=== PATIENT | male | born 1955 | race Caucasian/White ===

== ENCOUNTER 2018-04-10 10:55 | Emergency (ER) | payer OTHER ==
[2018-04-10] MEDS ORDERED: HYDROCODONE/APAP 10/325 TAB ONE (11:55)
--- NOTE | 2018-04-10 12:17 | RAD REPORT ---
EXAM DESCRIPTION: CTSpine Lumbar Wo Con04/10/2018 11:46 am CLINICAL HISTORY: Back injury with back pain and radiculopathy status post fall COMPARISON: None TECHNIQUE: Computed axial tomography lumbar spine was obtained with coronal and sagittal reconstruct ion. All CT scans are performed using dose optimization technique as appropriate and may include automated exposure control or mA/KV adjustment according to patient size. FINDINGS: Rotoscoliosis involves the thoracolumbar spine. A fracture involves the left transverse process of L2. Mild posterior subluxation of L1 on L2 and L2 on L3 is seen. Moderate spondylosis involves the upper lumbar spine consisting disc space narrowing, osteophytes, bell bchondral sclerosis and vacuum phenomena. Moderate spondylosis also involves L5-S1. A couple of ill-defined lucencies are present within the iliac bones bilaterally. The largest measure s 8 millimeters IMPRESSION: Fracture involving the left transverse processes of L2 A couple of ill-defined lucencies are present within the iliac bones bilaterally. The largest measure s 8 millimeters. These are nonspecific and can be monitored on a subsequent exam to assess stability
--- NOTE | 2018-04-10 12:26 | ER ---
Nurse's Notes [facility] Name: Jose Foster Age: 62 yrs Sex: Male : 1955 Arrival Date: 04/10/2018 Time: 10:59 Bed Treatment Private MD: Diagnosis: Fall due to bumping against object;Low back pain;Fracture of second lumbar vertebra-left transverse process Presentation: 04/10 10:59 Presenting complaint: EMS states: Fell yesterday and landed on the corner of an appliance in neighbor's yard, c/o left lower back pain, denies LOC. Transition of care: patient was not received from another setting of care. Onset of symptoms was April 10, 2018. Initial Sepsis Screen: Does the patient meet any 2 criteria? No. Patient's initial sepsis screen is negative. Does the patient have a suspected source of infection? No. Patient's initial sepsis screen is negative. Care prior to arrival: None. 10:59 Method Of Arrival: EMS: [facility] 10:59 Acuity: LINO 4 ph Historical: - Allergies: 11:05 Bactrim DS; ph - Home Meds: 11:05 Ativan 0.5 mg Oral tab 1 tab 3 times per day [Active]; carvedilol 6.25 mg Oral tab 1 ph tab 2 times per day for Hypertension [Active]; diclofenac sodium 75 mg Oral TbEC 1 tab 2 times per day [Active]; gabapentin 300 mg Oral cap 1 cap 3 times per day [Active]; Flexeril 5 mg Oral tab 1 tab 3 times per day for Fibromyalgia [Active]; Lyrica Oral 2 times per day [Active]; nystatin 100,000 unit/mL Oral susp 4 mL 4 times per day [Active]; proair HFA [Active]; Zoloft 100 mg Oral tab 1 tab once daily [Active]; - PMHx: 11:05 Anxiety; chronic back pain; COPD; Hypertension; scoliosis; ph - PSHx: 11:05 Appendectomy; ph - Immunization history:: Adult Immunizations unknown. - Social history:: Smoking status: Patient uses tobacco products, smokes one-half pack cigarettes per day. - Family history:: not pertinent. Screenin:07 Abuse screen: Denies threats or abuse. Denies injuries from another. Nutritional ph screening: No deficits noted. Tuberculosis screening: No symptoms or risk factors identified. Fall Risk Fall in past 12 months (25 points). Secondary diagnosis (15 points) impaired mobility, No IV (0 pts). Ambulatory Aid- Crutches/Cane/Walker (15 pts). Gait- Impaired (20 pts.). Mental Status- Oriented to own ability (0 pts). Total Hugo Fall Scale indicates High Risk Score (45 or more points). Fall prevention measures have been instituted. Side Rails Up X 2 Placed Close to Nursing Station As available patient and family educated on Fall Prevention Program and Strategies. Assessment: 11:05 General: Appears in no apparent distress. uncomfortable, slender, well groomed, ph Behavior is calm, cooperative, appropriate for age. Pain: Complains of pain in left low back Pain currently is 10 out of 10 on a pain scale. Neuro: Level of Consciousness is awake, alert, obeys commands, Oriented to person, place. Cardiovascular: Capillary refill < 3 seconds Patient's skin is warm and dry. Respiratory: Airway is patent Respiratory effort is even, unlabored. GI: No signs and/or symptoms were reported involving the gastrointestinal system. Derm: Skin is intact, Skin is pink, warm \T\ dry. Musculoskeletal: Circulation, motion, and sensation intact. Range of motion: intact in all extremities. 12:19 Reassessment: Patient appears in no apparent distress at this time. Patient and/or ph family updated on plan of care and expected duration. Pain level reassessed. Patient is alert, oriented x 3, equal unlabored respirations, skin warm/dry/pink. Pt resting quietly, awaiting CT results. 13:13 Reassessment: Patient appears in no apparent distress at this time. Patient and/or ph family updated on plan of care and expected duration. Pain level reassessed. Patient is alert, oriented x 3, equal unlabored respirations, skin warm/dry/pink. Vital Signs: 11:02 BP 127 / 92; Pulse 81; Resp 16; Temp 98.0; Pulse Ox 95% on R/A; Weight 58.97 kg; Height ph 5 ft. 10 in. (177.80 cm); Pain 10/10; 12:03 BP 119 / 81; Pulse 80; Resp 18; Pulse Ox 97% on R/A; mh5 11:02 Body Mass Index 18.65 (58.97 kg, 177.80 cm) ph ED Course: 10:59 Patient arrived in ED. ph 11:02 Triage completed. ph 11:04 Mick Hollingsworth MD is Attending Physician. oni 11:05 Arm band placed on. ph 11:07 Patient has correct armband on for positive identification. Bed in low position. Call ph light in reach. Side rails up X 1. Pulse ox on. Sitter at bedside. 11:33 Estefanía Saravia, RN is Primary Nurse. ph 11:45 CT completed. Patient tolerated procedure well. Patient moved to CT via stretcher. Patient moved back from CT. 11:46 CT Lumbar Spine Wo Con In Process Unspecified. EDMS 12:26 Cyril Harris MD is Referral Physician. oni 13:14 No provider procedures requiring assistance completed. Patient did not have IV access ph during this emergency room visit. Administered Medications: 12:18 Drug: Reva 10 mg-325 mg 1 tabs Route: PO; ph 13:15 Follow up: Response: No adverse reaction ph Outcome: 12:25 Discharge ordered by . oni 13:14 Discharged to home ambulatory. ph 13:14 Condition: good 13:14 Discharge instructions given to patient, Instructed on discharge instructions, the need for admit, medication usage, Demonstrated understanding of instructions, follow-up care, medications, Prescriptions given X 2. 13:37 Patient left the ED. iw Signatures: Dispatcher [employer] Mick Girard MD MD cha Williams, Irene, OTILIA BINGHAM iw Estefanía Saravia RN RN ph Warren, Shannon sw Martinez, Maria [facility]
--- NOTE | 2018-04-10 12:26 | EDPHYS ---
Physician Documentation [facility] Name: Jose Foster Age: 62 yrs Sex: Male : 1955 Arrival Date: 04/10/2018 Time: 10:59 Bed Treatment Private MD: ED Physician Mick Hollingsworth HPI: 04/10 11:31 This 62 yrs old Male presents to ER via EMS with complaints of Back Pain. oni 11:31 The patient presents with pain that is acute. The symptoms are located in the low back. oni Onset: The symptoms/episode began/occurred yesterday. The pain does not radiate. Associated signs and symptoms: The patient has no apparent associated signs or symptoms. The problem was sustained during a fall. Modifying factors: The patient symptoms are alleviated by nothing, the patient symptoms are aggravated by standing. Severity of symptoms: At their worst the symptoms were moderate, in the emergency department the symptoms are unchanged. Historical: - Allergies: 11:05 Bactrim DS; ph - Home Meds: 11:05 Ativan 0.5 mg Oral tab 1 tab 3 times per day [Active]; carvedilol 6.25 mg Oral tab 1 ph tab 2 times per day for Hypertension [Active]; diclofenac sodium 75 mg Oral TbEC 1 tab 2 times per day [Active]; gabapentin 300 mg Oral cap 1 cap 3 times per day [Active]; Flexeril 5 mg Oral tab 1 tab 3 times per day for Fibromyalgia [Active]; Lyrica Oral 2 times per day [Active]; nystatin 100,000 unit/mL Oral susp 4 mL 4 times per day [Active]; proair HFA [Active]; Zoloft 100 mg Oral tab 1 tab once daily [Active]; - PMHx: 11:05 Anxiety; chronic back pain; COPD; Hypertension; scoliosis; ph - PSHx: 11:05 Appendectomy; ph - Immunization history:: Adult Immunizations unknown. - Social history:: Smoking status: Patient uses tobacco products, smokes one-half pack cigarettes per day. - Family history:: not pertinent. ROS: 11:31 Constitutional: Negative for fever, chills, and weight loss, Eyes: Negative for injury, oni pain, redness, and discharge, ENT: Negative for injury, pain, and discharge, Neck: Negative for injury, pain, and swelling, Cardiovascular: Negative for chest pain, palpitations, and edema, Respiratory: Negative for shortness of breath, cough, wheezing, and pleuritic chest pain, Abdomen/GI: Negative for abdominal pain, nausea, vomiting, diarrhea, and constipation, : Negative for injury, bleeding, discharge, and swelling, MS/Extremity: Negative for injury and deformity, Skin: Negative for injury, rash, and discoloration, Neuro: Negative for headache, weakness, numbness, tingling, and seizure, Psych: Negative for depression, anxiety, suicide ideation, homicidal ideation, and hallucinations, Allergy/Immunology: Negative for hives, rash, and allergies, Endocrine: Negative for neck swelling, polydipsia, polyuria, polyphagia, and marked weight changes, Hematologic/Lymphatic: Negative for swollen nodes, abnormal bleeding, and unusual bruising. 11:31 Back: Positive for decreased range of motion, pain at rest, pain with movement, of the lumbar area, left low back and right low back. Exam: 11:31 Constitutional: This is a well developed, well nourished patient who is awake, alert, oni and in no acute distress. Head/Face: Normocephalic, atraumatic. Eyes: Pupils equal round and reactive to light, extra-ocular motions intact. Lids and lashes normal. Conjunctiva and sclera are non-icteric and not injected. Cornea within normal limits. Periorbital areas with no swelling, redness, or edema. ENT: Nares patent. No nasal discharge, no septal abnormalities noted. Tympanic membranes are normal and external auditory canals are clear. Oropharynx with no redness, swelling, or masses, exudates, or evidence of obstruction, uvula midline. Mucous membranes moist. Neck: Trachea midline, no thyromegaly or masses palpated, and no cervical lymphadenopathy. Supple, full range of motion without nuchal rigidity, or vertebral point tenderness. No Meningismus. Chest/axilla: Normal chest wall appearance and motion. Nontender with no deformity. No lesions are appreciated. Cardiovascular: Regular rate and rhythm with a normal S1 and S2. No gallops, murmurs, or rubs. Normal PMI, no JVD. No pulse deficits. Respiratory: Lungs have equal breath sounds bilaterally, clear to auscultation and percussion. No rales, rhonchi or wheezes noted. No increased work of breathing, no retractions or nasal flaring. Abdomen/GI: Soft, non-tender, with normal bowel sounds. No distension or tympany. No guarding or rebound. No evidence of tenderness throughout. Male : Normal genitalia with no discharge or lesions. Skin: Warm, dry with normal turgor. Normal color with no rashes, no lesions, and no evidence of cellulitis. MS/ Extremity: Pulses equal, no cyanosis. Neurovascular intact. Full, normal range of motion. Neuro: Awake and alert, GCS 15, oriented to person, place, time, and situation. Cranial nerves II-XII grossly intact. Motor strength 5/5 in all extremities. Sensory grossly intact. Cerebellar exam normal. Normal gait. Psych: Awake, alert, with orientation to person, place and time. Behavior, mood, and affect are within normal limits. 11:31 Back: pain, that is moderate, ROM is painful, scoliosis that is moderate, CVA tenderness, is absent, vertebral tenderness, is appreciated at L1, L2, L3, L4 and L5. Vital Signs: 11:02 BP 127 / 92; Pulse 81; Resp 16; Temp 98.0; Pulse Ox 95% on R/A; Weight 58.97 kg; Height ph 5 ft. 10 in. (177.80 cm); Pain 10/10; 12:03 BP 119 / 81; Pulse 80; Resp 18; Pulse Ox 97% on R/A; mh5 11:02 Body Mass Index 18.65 (58.97 kg, 177.80 cm) ph MDM: 11:05 Patient medically screened. [facility] 11:33 Data reviewed: vital signs, nurses notes, lab test result(s), radiologic studies, CT [facility] scan. 04/10 12:33 Order name: Urine Dipstick--Ancillary (enter results) 04/10 11:31 Order name: CT Lumbar Spine Wo Con; Complete Time: 12:23 oni 04/10 11:31 Order name: Urine Dipstick-Ancillary (obtain specimen); Complete Time: 12:19 [facility] Administered Medications: 12:18 Drug: [place] 10 mg-325 mg 1 tabs Route: PO; ph 13:15 Follow up: Response: No adverse reaction ph Disposition: 04/10/18 12:25 Discharged to Home. Impression: Fall due to bumping against object, Low back pain, Fracture of second lumbar vertebra - left transverse process. - Condition is Stable. - Discharge Instructions: Back Pain, Adult, Chronic Back Pain, Musculoskeletal Pain, Lumbar Fracture, Back Injury Prevention, [id number], Back Pain, Adult, [id number]. - Prescriptions for Tylenol- Codeine #3 300-30 mg Oral Tablet - take 2 tablet by ORAL route every 6 hours As needed; 30 tablet. Motrin IB 200 mg Oral Tablet - take 2 tablet by ORAL route every 6 hours As needed as needed with food; 24 tablet. - Medication Reconciliation Form, Thank You Letter, Antibiotic Education, Prescription Opioid Use form. - Follow up: Private Physician; When: 2 - 3 days; Reason: Recheck today's complaints, Continuance of care, Re-evaluation by your physician. Follow up: Cyril Harris MD; When: 2 - 3 days; Reason: Recheck today's complaints, Re-evaluation by your physician. - Problem is new. - Symptoms have improved. Signatures: Dispatcher [employer] EDMick Francis MD MD cha Williams, Irene, RN RN Estefanía Garcia RN RN ph Corrections: (The following items were deleted from the chart) 12:26 12:25 04/10/2018 12:25 Discharged to Home. Impression: Fall due to bumping against oni object; Low back pain; Fracture of second lumbar vertebra - left transverse process. Condition is Stable. Discharge Instructions: Back Pain, Adult, Chronic Back Pain, Musculoskeletal Pain, Back Injury Prevention, [id number], Back Pain, Adult, [id number]. Prescriptions for Tylenol-Codeine #3 300-30 mg Oral Tablet - take 2 tablet by ORAL route every 6 hours As needed; 30 tablet, Motrin IB 200 mg Oral Tablet - take 2 tablet by ORAL route every 6 hours As needed as needed with food; 24 tablet. and Forms are Medication Reconciliation Form, Thank You Letter, Antibiotic Education, Prescription Opioid Use. Follow up: Private Physician; When: 2 - 3 days; Reason: Recheck today's complaints, Continuance of care, Re-evaluation by your physician. Problem is new. Symptoms have improved. [facility] 13:37 12:26 04/10/2018 12:25 Discharged to Home. Impression: Fall due to bumping against iw object; Low back pain; Fracture of second lumbar vertebra - left transverse process. Condition is Stable. Discharge Instructions: Back Pain, Adult, Chronic Back Pain, Musculoskeletal Pain, Back Injury Prevention, [id number], Back Pain, Adult, [id number]. Prescriptions for Tylenol-Codeine #3 300-30 mg Oral Tablet - take 2 tablet by ORAL route every 6 hours As needed; 30 tablet, Motrin IB 200 mg Oral Tablet - take 2 tablet by ORAL route every 6 hours As needed as needed with food; 24 tablet. and Forms are Medication Reconciliation Form, Thank You Letter, Antibiotic Education, Prescription Opioid Use. Follow up: Private Physician; When: 2 - 3 days; Reason: Recheck today's complaints, Continuance of care, Re-evaluation by your physician. Follow up: Cyril Harris; When: 2 - 3 days; Reason: Recheck today's complaints, Re-evaluation by your physician. Problem is new. Symptoms have improved. oni
[2018-04-10 13:47] VITALS: TEMP 98
[2018-04-10 13:48] VITALS: BP 119/81; O2SAT 97
[2018-04-10 15:12] LABS: Urine Blood NEGATIVE (NEG); Urine Glucose NEGATIVE (NEG); Urine Protein NEGATIVE (NEG); Urine Specific Gravity 1.015 (1.005-1.030); Urine pH 6.5 (5.0-7.0)
== END 2018-04-10 13:37 | disposition home or self-care (01) ==
LOC: ER 10:55
DX: S32.029A Unspecified fracture of second lumbar vertebra, initial encounter for closed fracture (principal); W19.XXXA Unspecified fall, initial encounter; Y93.9 Activity, unspecified; Y92.9 Unspecified place or not applicable; F17.210 Nicotine dependence, cigarettes, uncomplicated; Z88.1 Allergy status to other antibiotic agents; I10 Essential (primary) hypertension; F41.9 Anxiety disorder, unspecified; J44.9 Chronic obstructive pulmonary disease, unspecified
CPT/HCPCS: 72131; 81003; 99285

== ENCOUNTER 2018-04-13 11:22 | Emergency (ER) | payer OTHER ==
[2018-04-13] MEDS ORDERED: MEPERIDINE HCL 25 MG/0.5 ML ONE (12:35)
[2018-04-13] MEDS ORDERED: KETOROLAC 30 MG/ML INJ ONE (12:35)
--- NOTE | 2018-04-13 14:08 | EDPHYS ---
Physician Documentation [facility] Name: Jose Foster Age: 62 yrs Sex: Male : 1955 Arrival Date: 04/13/2018 Time: 11:23 Bed 15 Private MD: Rabia Horn ED Physician Ron Boothe HPI: 04/13 12:27 This 62 yrs old Male presents to ER via EMS with complaints of Back Pain. rn 12:27 The patient presents with pain that is acute. The symptoms are located in the low back. rn 12:27 Onset: The symptoms/episode began/occurred 3 day(s) ago. The pain does not radiate. rn Associated signs and symptoms: Pertinent positives: none Pertinent negatives: abdominal pain, chest pain, constipation, dysuria, fever, hematuria, incontinence, nausea, numbness, tingling, urinary retention, vomiting, weakness. Modifying factors: The patient symptoms are alleviated by nothing, the patient symptoms are aggravated by any movement, bending. Severity of symptoms: At their worst the symptoms were moderate, in the emergency department the symptoms are unchanged. The patient has not experienced similar symptoms in the past. Reports fell from standing, seen here a few days ago, diagnosed with transverse process fracture, returns because of worsening pain, not resolved with tylenol #3, has contacted his pcp, is trying to get in with pain management, no neurological complaints. Ambulatory, no bowel/bladder issues. . Historical: - Allergies: : Bactrim DS; mouth irritation; hb - Home Meds: : Ativan 0.5 mg Oral tab 1 tab 3 times per day [Active]; carvedilol 6.25 mg Oral tab 1 hb tab 2 times per day for Hypertension [Active]; diclofenac sodium 75 mg Oral TbEC 1 tab 2 times per day [Active]; Flexeril 5 mg Oral tab 1 tab 3 times per day for Fibromyalgia [Active]; gabapentin 300 mg Oral cap 1 cap 3 times per day [Active]; Lyrica Oral 2 times per day [Active]; nystatin 100,000 unit/mL Oral susp 4 mL 4 times per day [Active]; proair HFA [Active]; Zoloft 100 mg Oral tab 1 tab once daily [Active]; - PMHx: 11:59 Anxiety; chronic back pain; COPD; Hypertension; scoliosis; hb - PSHx: 11:59 Appendectomy; hb - Immunization history:: Adult Immunizations up to date. - Social history:: Smoking status: Patient uses tobacco products, smokes one-half pack cigarettes per day. - Family history:: not pertinent. - Hospitalizations: : No recent hospitalization is reported. ROS: 12:27 Constitutional: Negative for fever, chills, and weight loss, Eyes: Negative for injury, rn pain, redness, and discharge, Neck: Negative for injury, pain, and swelling, Cardiovascular: Negative for chest pain, palpitations, and edema, Respiratory: Negative for shortness of breath, cough, wheezing, and pleuritic chest pain, Abdomen/GI: Negative for abdominal pain, nausea, vomiting, diarrhea, and constipation, Back: + injury and back pain MS/Extremity: Negative for injury and deformity, Neuro: Negative for headache, weakness, numbness, tingling, and seizure. Exam: 12:27 Constitutional: This is a well developed, well nourished patient who is awake, alert, rn and in no acute distress. Back: + left perispinal lumbar tenderness, no ecchymosis, no skin changes MS/ Extremity: Pulses equal, no cyanosis. Neurovascular intact. Full, normal range of motion. Equal circumference. Neuro: Awake and alert, GCS 15, oriented to person, place, time, and situation. Cranial nerves II-XII grossly intact. Motor strength 5/5 in all extremities. Sensory grossly intact. Cerebellar exam normal. Normal gait. Vital Signs: 11:57 BP 125 / 90; Pulse 77; Resp 18; Temp 97.3; Pulse Ox 98% on R/A; Weight 58.97 kg; Height hb 5 ft. 10 in. (177.80 cm); Pain 10/10; 13:37 BP 128 / 83; Pulse 64; Resp 16; Pulse Ox 100% on R/A; mh5 11:57 Body Mass Index 18.65 (58.97 kg, 177.80 cm) hb MDM: 12:00 Patient medically screened. rn 14:06 Differential diagnosis: arthritis, chronic back pain, Fatigue Fracture. Data reviewed: rn vital signs, nurses notes, old medical records, and as a result, I will discharge patient. Counseling: I had a detailed discussion with the patient and/or guardian regarding: the historical points, exam findings, and any diagnostic results supporting the discharge/admit diagnosis, radiology results, the need for outpatient follow up, to return to the emergency department if symptoms worsen or persist or if there are any questions or concerns that arise at home. Response to treatment: the patient's symptoms have markedly improved after treatment, and as a result, I will discharge patient. Special discussion: I discussed with the patient/guardian in detail that at this point there is no indication for admission to the hospital. It is understood, however, that if the symptoms persist or worsen the patient needs to return immediately for re-evaluation. ED course: Pt requesting to go home, feels better. . Administered Medications: 12:41 Drug: Demerol 25 mg Route: IM; Site: right deltoid; ph 14:00 Follow up: Response: No adverse reaction; Pain is decreased ph 12:42 Drug: TORadol 30 mg Route: IM; Site: right deltoid; ph 14:00 Follow up: Response: No adverse reaction; Pain is decreased ph Disposition: 04/13/18 14:07 Discharged to Home. Impression: Transverse process fracture of L2. . - Condition is Stable. - Discharge Instructions: Transverse Process Fracture. - Medication Reconciliation Form, Thank You Letter, Antibiotic Education, Prescription Opioid Use form. - Follow up: Private Physician; When: As needed; Reason: Recheck today's complaints, Re-evaluation by your physician. - Problem is an ongoing problem. - Symptoms have improved. Signatures: Ron Boothe MD MD rn Hall, Patricia, RN RN Thania Becker RN RN Corrections: (The following items were deleted from the chart) 14:20 14:07 04/13/2018 14:07 Discharged to Home. Impression: Transverse process fracture of ph L2. . Condition is Stable. Forms are Medication Reconciliation Form, Thank You Letter, Antibiotic Education, Prescription Opioid Use. Follow up: Private Physician; When: As needed; Reason: Recheck today's complaints, Re-evaluation by your physician. Problem is an ongoing problem. Symptoms have improved. rn
--- NOTE | 2018-04-13 14:08 | ER ---
Nurse's Notes [facility] Name: Jose Foster Age: 62 yrs Sex: Male : 1955 Arrival Date: 04/13/2018 Time: 11:23 Bed 15 Private MD: Rabia Horn Diagnosis: Transverse process fracture of L2. Presentation: 04/13 11:53 Presenting complaint: EMS states: Low back pain 09/09. Seen in ED 3 days ago for lumbar hb fx, on Tylenol #3 but pain has become unbearable. Transition of care: patient was not received from another setting of care. Onset of symptoms was April 10, 2018. Initial Sepsis Screen: Does the patient meet any 2 criteria? No. Patient's initial sepsis screen is negative. Does the patient have a suspected source of infection? No. Patient's initial sepsis screen is negative. Care prior to arrival: Medication(s) given: Tylenol #3 at 0500 today. 11:53 Acuity: LINO 3 hb 11:53 Method Of Arrival: EMS: [facility] Historical: - Allergies: 11:59 Bactrim DS; mouth irritation; hb - Home Meds: 11:59 Ativan 0.5 mg Oral tab 1 tab 3 times per day [Active]; carvedilol 6.25 mg Oral tab 1 hb tab 2 times per day for Hypertension [Active]; diclofenac sodium 75 mg Oral TbEC 1 tab 2 times per day [Active]; Flexeril 5 mg Oral tab 1 tab 3 times per day for Fibromyalgia [Active]; gabapentin 300 mg Oral cap 1 cap 3 times per day [Active]; Lyrica Oral 2 times per day [Active]; nystatin 100,000 unit/mL Oral susp 4 mL 4 times per day [Active]; proair HFA [Active]; Zoloft 100 mg Oral tab 1 tab once daily [Active]; - PMHx: 11:59 Anxiety; chronic back pain; COPD; Hypertension; scoliosis; hb - PSHx: 11:59 Appendectomy; hb - Immunization history:: Adult Immunizations up to date. - Social history:: Smoking status: Patient uses tobacco products, smokes one-half pack cigarettes per day. - Family history:: not pertinent. - Hospitalizations: : No recent hospitalization is reported. Screenin:00 Abuse screen: Denies threats or abuse. Denies injuries from another. Nutritional ph screening: No deficits noted. Tuberculosis screening: No symptoms or risk factors identified. Fall Risk None identified. Assessment: 12:00 General: Appears in no apparent distress. uncomfortable, slender, well groomed, ph Behavior is calm, cooperative, appropriate for age. Pain: Complains of pain in left low back. Neuro: Level of Consciousness is awake, alert, obeys commands, Oriented to person, place, time, situation. Cardiovascular: Capillary refill < 3 seconds Patient's skin is warm and dry. Respiratory: Airway is patent Respiratory effort is even, unlabored, Respiratory pattern is regular, symmetrical. Derm: Skin is intact, is healthy with good turgor, Skin is pink, warm \T\ dry. Musculoskeletal: Circulation, motion, and sensation intact. Range of motion: intact in all extremities, Swelling absent. 13:30 Reassessment: Patient appears in no apparent distress at this time. Patient and/or ph family updated on plan of care and expected duration. Pain level reassessed. Patient is alert, oriented x 3, equal unlabored respirations, skin warm/dry/pink. Pt reports that pain has decreased to an acceptable level, requesting to be discharged,, ERP notified. Vital Signs: 11:57 BP 125 / 90; Pulse 77; Resp 18; Temp 97.3; Pulse Ox 98% on R/A; Weight 58.97 kg; Height hb 5 ft. 10 in. (177.80 cm); Pain 10/10; 13:37 BP 128 / 83; Pulse 64; Resp 16; Pulse Ox 100% on R/A; mh5 11:57 Body Mass Index 18.65 (58.97 kg, 177.80 cm) hb ED Course: 11:23 Patient arrived in ED. mr 11:24 Rabia Horn is Private Physician. mr 11:56 Triage completed. hb 11:57 Arm band placed on right wrist. hb 12:00 Ron Boothe MD is Attending Physician. rn 12:00 Patient has correct armband on for positive identification. Placed in gown. Bed in low ph position. Call light in reach. Side rails up X 1. Pulse ox on. NIBP on. 12:16 Estefanía Saravia RN is Primary Nurse. ph 14:20 No provider procedures requiring assistance completed. Patient did not have IV access ph during this emergency room visit. Administered Medications: 12:41 Drug: Demerol 25 mg Route: IM; Site: right deltoid; ph 14:00 Follow up: Response: No adverse reaction; Pain is decreased ph 12:42 Drug: TORadol 30 mg Route: IM; Site: right deltoid; ph 14:00 Follow up: Response: No adverse reaction; Pain is decreased ph Outcome: 14:07 Discharge ordered by . rn 14:20 Patient left the ED. ph 14:20 Discharged to home ambulatory. ph 14:20 Condition: good 14:20 Discharge instructions given to patient, Instructed on discharge instructions, follow up and referral plans. Demonstrated understanding of instructions, follow-up care. Signatures: Iris Swartz Roman, MD MD rn Hall, Patricia, RN RN ph Baxter, Heather, RN RN hb Martinez, [facility] Corrections: (The following items were deleted from the chart) 11:57 11:53 Presenting complaint: EMS states: Seen in ED 3 days ago for lumbar fx, on Tylenol hb #3 but pain has become unbearable. Reports back pain 09/09. hb
[2018-04-13 14:23] VITALS: TEMP 97.3
[2018-04-13 14:24] VITALS: BP 128/83; O2SAT 100
== END 2018-04-13 14:20 | disposition home or self-care (01) ==
LOC: ER 11:22
DX: S32.029A Unspecified fracture of second lumbar vertebra, initial encounter for closed fracture (principal); W19.XXXA Unspecified fall, initial encounter; Y93.9 Activity, unspecified; Y92.9 Unspecified place or not applicable; Z88.1 Allergy status to other antibiotic agents; I10 Essential (primary) hypertension; J44.9 Chronic obstructive pulmonary disease, unspecified; F17.210 Nicotine dependence, cigarettes, uncomplicated
CPT/HCPCS: 96372; 99283; J2175

== ENCOUNTER 2018-05-06 21:09 | Emergency (ER) | payer OTHER ==
[2018-05-06] MEDS ORDERED: MORPHINE 4 MG/ML SYR ONE (22:46)
[2018-05-06] MEDS ORDERED: KETOROLAC 30 MG/ML INJ ONE (22:46)
--- NOTE | 2018-05-06 22:52 | ER ---
Nurse's Notes [facility] Name: Jose Foster Age: 62 yrs Sex: Male : 1955 Arrival Date: 05/06/2018 Time: 21:23 Bed 13 Private MD: Diagnosis: Transverse process fracture of L2 Presentation: 05/06 21:24 Presenting complaint: EMS states: "Patient c/o lower back pain, reports he fell about 3 bs1 weeks ago and hit his back on the edge of the refrigerator, went to the ER and they said he had a fracture.". Transition of care: patient was not received from another setting of care. Onset of symptoms was May 06, 2018. Risk Assessment: Do you want to hurt yourself or someone else? Patient reports no desire to harm self or others. Initial Sepsis Screen: Does the patient meet any 2 criteria? No. Patient's initial sepsis screen is negative. Does the patient have a suspected source of infection? No. Patient's initial sepsis screen is negative. Care prior to arrival: None. 21:24 Method Of Arrival: EMS: [facility] bs1 21:24 Acuity: LINO 4 bs1 Historical: - Allergies: 21:31 Bactrim DS; mouth irritation; bs1 - Home Meds: 21:31 Ativan 0.5 mg Oral tab 1 tab 3 times per day [Active]; carvedilol 6.25 mg Oral tab 1 bs1 tab 2 times per day for Hypertension [Active]; gabapentin 300 mg Oral cap 1 cap 3 times per day [Active]; Cymbalta oral oral [Active]; symbicort [Active]; Albuterol Inhl [Active]; proair HFA [Active]; diclofenac sodium 75 mg Oral TbEC 1 tab 2 times per day [Active]; Flexeril 5 mg Oral tab 1 tab 3 times per day for Fibromyalgia [Active]; - PMHx: 21:31 Anxiety; chronic back pain; COPD; Hypertension; scoliosis; Depression; Fibromyalgia; bs1 - PSHx: 21:31 Appendectomy; bs1 - Immunization history:: Adult Immunizations unknown. - Social history:: Smoking status: Patient uses tobacco products, smokes one-half pack cigarettes per day. - Ebola Screening: : Patient negative for fever greater than or equal to 101.5 degrees Fahrenheit, and additional compatible Ebola Virus Disease symptoms Patient denies exposure to infectious person. Screenin:52 Abuse screen: Denies threats or abuse. Denies injuries from another. Nutritional bs1 screening: No deficits noted. Tuberculosis screening: No symptoms or risk factors identified. Fall Risk Fall in past 12 months (25 points). No secondary diagnosis (0 pts). No IV (0 pts). Ambulatory Aid- Crutches/Cane/Walker (15 pts). Gait- Weak (10 pts.). Mental Status- Oriented to own ability (0 pts). Total Hugo Fall Scale indicates Low Risk Score (25-44 pts). Assessment: 21:25 General: Appears uncomfortable, slender, unkempt, Behavior is anxious. Pain: Complains bs1 of pain in lower back pain. Neuro: Level of Consciousness is awake, alert, obeys commands, Oriented to person, place, time, situation. Cardiovascular: Denies chest pain, shortness of breath, Heart tones S1 S2 present Capillary refill < 3 seconds Patient's skin is warm and dry. Respiratory: Airway is patent Trachea midline Respiratory effort is even, unlabored, Respiratory pattern is regular, symmetrical, Breath sounds are clear bilaterally. GI: No signs and/or symptoms were reported involving the gastrointestinal system. : No signs and/or symptoms were reported regarding the genitourinary system. EENT: No signs and/or symptoms were reported regarding the EENT system. Derm: Skin is intact, Skin is pink, warm \\T\\ dry. Musculoskeletal: Circulation, motion, and sensation intact. Capillary refill < 3 seconds, Range of motion: intact in all extremities, Reports pain in lower back. 21:25 Respiratory: Reports spitting up blood this am. bs1 22:45 Reassessment: Patient appears in no apparent distress at this time. Patient and/or bs1 family updated on plan of care and expected duration. Pain level reassessed. Patient is alert, oriented x 3, equal unlabored respirations, skin warm/dry/pink. 23:45 Reassessment: No changes from previously documented assessment. Patient and/or family bs1 updated on plan of care and expected duration. Pain level reassessed. Patient is alert, oriented x 3, equal unlabored respirations, skin warm/dry/pink. Vital Signs: 21:32 BP 127 / 89 LA Sitting (auto/reg); Pulse 62 LA; Resp 16 S; Temp 98.3(O); Pulse Ox 96% bs1 on R/A; Weight 56.7 kg (R); Height 5 ft. 9 in. (175.26 cm); Pain 10/10; 22:30 BP 131 / 89; Pulse 62; Resp 16; Pulse Ox 99% on R/A; bs1 23:30 BP 135 / 90; Pulse 60; Resp 17; Temp 98(O); Pulse Ox 100% on R/A; Pain 6/10; bs1 21:32 Body Mass Index 18.46 (56.70 kg, 175.26 cm) bs1 ED Course: 21:23 Patient arrived in ED. bs1 21:25 Triage completed. bs1 21:38 Reji Patton NP is PHCP. pm1 21:38 Mick Hollingsworth MD is Attending Physician. pm1 22:27 Rosa Wells RN is Primary Nurse. bs1 23:53 Arm band placed on right wrist. bs1 23:53 Patient has correct armband on for positive identification. Bed in low position. Call bs1 light in reach. Side rails up X 1. Pulse ox on. 23:53 No provider procedures requiring assistance completed. Patient did not have IV access bs1 during this emergency room visit. Administered Medications: 22:55 Drug: morphine 5 mg Route: IM; Site: right deltoid; bs1 05/07 00:02 Follow up: Response: No adverse reaction bs1 05/06 22:55 Drug: TORadol 30 mg Route: IM; Site: right deltoid; bs1 23:54 Follow up: Response: No adverse reaction bs1 Outcome: 22:51 Discharge ordered by . pm1 23:[facility] and given a blanket bs1 23:53 Condition: stable 23:53 Discharge instructions given to patient, Instructed on discharge instructions, follow up and referral plans. Demonstrated understanding of instructions, follow-up care. 05/07 00:02 Patient left the ED. bs1 Signatures: Reji Patton NP [employer] pm1 Rosa Wells, OTILIA RN bs1 Corrections: (The following items were deleted from the chart) 05/06 22:41 21:25 Musculoskeletal: Circulation, motion, and sensation intact. Capillary refill < 3 bs1 seconds, Range of motion: intact in all extremities, bs1
--- NOTE | 2018-05-06 22:52 | EDPHYS ---
Physician Documentation [facility] Name: Jose Foster Age: 62 yrs Sex: Male : 1955 Arrival Date: 05/06/2018 Time: 21:23 Bed 13 Private MD: ED Physician Mick Hollingsworth HPI: 05/07 00:00 This 62 yrs old Male presents to ER via EMS with complaints of Back Pain. pm1 00:00 The patient presents with pain that is chronic. The symptoms are located in the low pm1 back. Onset: The symptoms/episode began/occurred 04/10/2018. The pain does not radiate. Associated signs and symptoms: Pertinent negatives: chest pain, dysuria, fever, numbness, tingling, shortness of breath. patient with fall injury on 04/10 resulting in transverse process fracture to L2. Patient reports no improvement in pain and is currently out of pain medications at home. PCP in the process of referral to neurosurgery, pain managment. Historical: - Allergies: 05/06 21:31 Bactrim DS; mouth irritation; bs1 - Home Meds: 21:31 Ativan 0.5 mg Oral tab 1 tab 3 times per day [Active]; carvedilol 6.25 mg Oral tab 1 bs1 tab 2 times per day for Hypertension [Active]; gabapentin 300 mg Oral cap 1 cap 3 times per day [Active]; Cymbalta oral oral [Active]; symbicort [Active]; Albuterol Inhl [Active]; proair HFA [Active]; diclofenac sodium 75 mg Oral TbEC 1 tab 2 times per day [Active]; Flexeril 5 mg Oral tab 1 tab 3 times per day for Fibromyalgia [Active]; - PMHx: 21:31 Anxiety; chronic back pain; COPD; Hypertension; scoliosis; Depression; Fibromyalgia; bs1 - PSHx: 21:31 Appendectomy; bs1 - Immunization history:: Adult Immunizations unknown. - Social history:: Smoking status: Patient uses tobacco products, smokes one-half pack cigarettes per day. - Ebola Screening: : Patient negative for fever greater than or equal to 101.5 degrees Fahrenheit, and additional compatible Ebola Virus Disease symptoms Patient denies exposure to infectious person. ROS: 05/07 00:00 Constitutional: Negative for fever, chills, and weight loss, Eyes: Negative for injury, pm1 pain, redness, and discharge, ENT: Negative for injury, pain, and discharge, Neck: Negative for injury, pain, and swelling, Cardiovascular: Negative for chest pain, palpitations, and edema, Respiratory: Negative for shortness of breath, cough, wheezing, and pleuritic chest pain, Abdomen/GI: Negative for abdominal pain, nausea, vomiting, diarrhea, and constipation. : Negative for injury, bleeding, discharge, and swelling, MS/Extremity: Negative for injury and deformity, Skin: Negative for injury, rash, and discoloration, Neuro: Negative for headache, weakness, numbness, tingling, and seizure. Back: Positive for of the lumbar area, Pain. Exam: 00:00 Constitutional: This is a well developed, well nourished patient who is awake, alert, pm1 and in no acute distress. Head/Face: Normocephalic, atraumatic. Chest/axilla: Normal chest wall appearance and motion. Nontender with no deformity. No lesions are appreciated. Cardiovascular: Regular rate and rhythm with a normal S1 and S2. No gallops, murmurs, or rubs. Normal PMI, no JVD. No pulse deficits. Respiratory: Lungs have equal breath sounds bilaterally, clear to auscultation and percussion. No rales, rhonchi or wheezes noted. No increased work of breathing, no retractions or nasal flaring. Abdomen/GI: Soft, non-tender, with normal bowel sounds. No distension or tympany. No guarding or rebound. No evidence of tenderness throughout. Back: No spinal tenderness. No costovertebral tenderness. Full range of motion. Skin: Warm, dry with normal turgor. Normal color with no rashes, no lesions, and no evidence of cellulitis. MS/ Extremity: Pulses equal, no cyanosis. Neurovascular intact. Full, normal range of motion. 00:00 Neuro: Orientation: is normal, Mentation: is normal, Memory: is normal, Motor: moves all fours, Sensation: is normal, no obvious gross deficits. Vital Signs: 05/06 21:32 BP 127 / 89 LA Sitting (auto/reg); Pulse 62 LA; Resp 16 S; Temp 98.3(O); Pulse Ox 96% bs1 on R/A; Weight 56.7 kg (R); Height 5 ft. 9 in. (175.26 cm); Pain 10/10; 22:30 BP 131 / 89; Pulse 62; Resp 16; Pulse Ox 99% on R/A; bs1 23:30 BP 135 / 90; Pulse 60; Resp 17; Temp 98(O); Pulse Ox 100% on R/A; Pain 6/10; bs1 21:32 Body Mass Index 18.46 (56.70 kg, 175.26 cm) bs1 MDM: 22:10 Patient medically screened. [facility] 22:50 Data reviewed: vital signs. Data interpreted: Pulse oximetry: on room air is 96 %. pm1 Interpretation: normal. Counseling: I had a detailed discussion with the patient and/or guardian regarding: the historical points, exam findings, and any diagnostic results supporting the discharge/admit diagnosis, the need for outpatient follow up, a [employer], to return to the emergency department if symptoms worsen or persist or if there are any questions or concerns that arise at home. Administered Medications: 22:55 Drug: morphine 5 mg Route: IM; Site: right deltoid; bs1 05/07 00:02 Follow up: Response: No adverse reaction bs1 05/06 22:55 Drug: TORadol 30 mg Route: IM; Site: right deltoid; bs1 23:54 Follow up: Response: No adverse reaction bs1 Disposition: 05/07 07:17 Co-signature as Attending Physician, Mick Hollingsworth MD I agree with the assessment and [facility] plan of care. Disposition: 05/06/18 22:51 Discharged to Home. Impression: Transverse process fracture of L2. - Condition is Stable. - Medication Reconciliation Form, Thank You Letter, Antibiotic Education, Prescription Opioid Use form. - Follow up: Emergency Department; When: As needed; Reason: Worsening of condition. Follow up: Private Physician; When: 2 - 3 days; Reason: Recheck today's complaints, Continuance of care, Re-evaluation by your physician. - Problem is new. - Symptoms have improved. Signatures: Mick Hollingsworth MD MD cha Marinas, Patrick, [facility] pm1 Rosa Wells, RN RN bs1 Corrections: (The following items were deleted from the chart) 05/06 22:52 22:51 05/06/2018 22:51 Discharged to Home. Impression: Transverse fracture of L2. pm1 Condition is Stable. Forms are Medication Reconciliation Form, Thank You Letter, Antibiotic Education, Prescription Opioid Use. Follow up: Emergency Department; When: As needed; Reason: Worsening of condition. Follow up: Private Physician; When: 2 - 3 days; Reason: Recheck today's complaints, Continuance of care, Re-evaluation by your physician. Problem is new. Symptoms have improved. pm1 05/07 00:02 05/06 22:52 05/06/2018 22:51 Discharged to Home. Impression: Transverse process bs1 fracture of L2. Condition is Stable. Forms are Medication Reconciliation Form, Thank You Letter, Antibiotic Education, Prescription Opioid Use. Follow up: Emergency Department; When: As needed; Reason: Worsening of condition. Follow up: Private Physician; When: 2 - 3 days; Reason: Recheck today's complaints, Continuance of care, Re-evaluation by your physician. Problem is new. Symptoms have improved. pm1
[2018-05-07 00:35] VITALS: BP 135/90; TEMP 98; O2SAT 100
== END 2018-05-07 00:02 | disposition home or self-care (01) ==
LOC: ER 21:09
DX: S32.029A Unspecified fracture of second lumbar vertebra, initial encounter for closed fracture (principal); W19.XXXA Unspecified fall, initial encounter; Y93.9 Activity, unspecified; Y92.9 Unspecified place or not applicable; Z88.1 Allergy status to other antibiotic agents; F17.210 Nicotine dependence, cigarettes, uncomplicated; I10 Essential (primary) hypertension; J44.9 Chronic obstructive pulmonary disease, unspecified; F41.9 Anxiety disorder, unspecified; F32.9 Major depressive disorder, single episode, unspecified
CPT/HCPCS: 96372; 99283

== ENCOUNTER 2018-05-17 18:06 | Emergency (ER) | payer OTHER ==
--- NOTE | 2018-05-17 18:26 | ER ---
Nurse's Notes [facility] Name: Jose Foster Age: 63 yrs Sex: Male : 1955 Arrival Date: 05/17/2018 Time: 18:07 Bed 18 Private MD: Diagnosis: Insect bite (nonvenomous) of lower leg-Bilateral, infected Presentation: 05/17 18:08 Presenting complaint: Patient states: multiple ant bites to bilateral lower extremities ss 2-3 days ago. Transition of care: patient was not received from another setting of care. Onset of symptoms was May 15, 2018. Risk Assessment: Do you want to hurt yourself or someone else? Patient reports no desire to harm self or others. Initial Sepsis Screen: Does the patient meet any 2 criteria? No. Patient's initial sepsis screen is negative. Does the patient have a suspected source of infection? Yes: Skin breakdown/wound. Care prior to arrival: None. 18:08 Method Of Arrival: Ambulatory ss 18:08 Acuity: LINO 5 ss Triage Assessment: 18:14 General: Appears in no apparent distress. comfortable, Behavior is calm, cooperative. ss Pain: Complains of pain in bilateral lower extremities. Neuro: Level of Consciousness is awake, alert. Respiratory: Airway is patent Respiratory effort is even, unlabored, Respiratory pattern is regular, symmetrical. Derm: Skin is. Musculoskeletal: Circulation, motion, and sensation intact. Range of motion: intact in all extremities. Historical: - Allergies: 18:12 Bactrim DS; mouth irritation; ss - PMHx: 18:12 Anxiety; chronic back pain; COPD; Depression; Fibromyalgia; Hypertension; scoliosis; ss - PSHx: 18:12 Appendectomy; ss - Immunization history:: Adult Immunizations up to date. - Social history:: Smoking status: Patient uses tobacco products, smokes one-half pack cigarettes per day. - Ebola Screening: : Patient denies exposure to infectious person Patient denies travel to an Ebola-affected area in the 21 days before illness onset. Screenin:14 Abuse screen: Denies threats or abuse. Denies injuries from another. Nutritional ss screening: No deficits noted. Tuberculosis screening: Never had TB. Fall Risk None identified. Assessment: 18:14 Reassessment: asked patient to get into gown, for proper assessment. Pt refused. ss 18:28 General: Appears in no apparent distress. comfortable, unkempt, well developed, kr2 Behavior is calm. Pain: Complains of pain in mid back Pain currently is 8 out of 10 on a pain scale. Quality of pain is described as aching, Is continuous, Alleviated by medications, Aggravated by increased activity, weight bearing. Neuro: Level of Consciousness is awake, alert, obeys commands, Oriented to person, place, time, situation, Appropriate for age Intact. Cardiovascular: Capillary refill < 3 seconds in bilateral fingers Patient's skin is warm and dry. Respiratory: Airway is patent Respiratory effort is even, unlabored, Respiratory pattern is regular, symmetrical. GI: Abdomen is flat, non-distended. : No signs and/or symptoms were reported regarding the genitourinary system. EENT: Oral mucosa is moist. Derm: Skin with poor turgor has lesions on bilateral lower extremities Skin is pink, warm \T\ dry. Musculoskeletal: Circulation, motion, and sensation intact. 18:41 Reassessment: Patient refused ordered ibuprofen, becoming irritated and said I don't kr2 want that, I need something stronger, take that ibuprofen out of here. Provider notified. 18:59 Reassessment: Patient appears in no apparent distress at this time. Patient given kr2 prescriptions and discharge paperwork and refused to sign papers until he spoke with the doctor in charge to get a pain medication. Notified Dr. Velázquez and charge nurse. Vital Signs: 18:12 BP 149 / 107; Pulse 80; Resp 16; Pulse Ox 98% on R/A; Pain 8/10; ss ED Course: 18:07 Patient arrived in ED. ss 18:11 Triage completed. ss 18:12 Mick Aguirre PA is PHCP. cp 18:12 Evelio Velázquez MD is Attending Physician. cp 18:12 Arm band placed on right wrist. ss 18:14 Patient has correct armband on for positive identification. Bed in low position. Call ss light in reach. Pulse ox on. NIBP on. 18:23 Cassie Desai, OTILIA is Primary Nurse. kr2 18:44 Wound culture swab sent to lab. kr2 19:01 No provider procedures requiring assistance completed. Patient did not have IV access kr2 during this emergency room visit. Administered Medications: 18:40 Drug: Clindamycin 300 mg Route: PO; kr2 19:00 Follow up: Response: No adverse reaction kr2 18:41 Not Given (Patient Refused): Ibuprofen 800 mg PO once kr2 Outcome: 18:26 Discharge ordered by MD. gonzalez 19:01 Discharged to Unknown patient arrived via EMS and does not immediately have a ride kr2 home. He agreed to wait in the waiting room for his ride to pick him up 19:01 Condition: good 19:01 Discharge instructions given to patient, Instructed on discharge instructions, follow up and referral plans. medication usage, Demonstrated understanding of instructions, follow-up care, medications, Prescriptions given X 2. 19:02 Patient left the ED. kr2 Addendum: 05/21/2018 15:39 Addendum: Culture Results: Positive wound culture. Not a working number Certified s s letter sent to listed address for patient. Signatures: Chantelle Norman RN RN Mick Chavez, Cassie Gipson cp, RN RN kr2 Corrections: (The following items were deleted from the chart) 15:40 15:39 Addendum: Culture Results: Positive wound culture. Not a working number [facility]
--- NOTE | 2018-05-17 18:26 | EDPHYS ---
Physician Documentation [facility] Name: Jose Foster Age: 63 yrs Sex: Male : 1955 Arrival Date: 05/17/2018 Time: 18:07 Bed 18 Private MD: ED Physician Evelio Velázquez HPI: 05/17 18:16 This 63 yrs old Male presents to ER via Ambulatory with complaints of ant cp bites. 18:16 Onset: The symptoms/episode began/occurred 2-3 days ago. cp 18:16 The patient presents with a bite, by an insect. The complaints affect the left lower cp leg, right lower leg. Context: the patient can fully bear weight. Associated signs and symptoms: Pertinent negatives fever, numbness, warmth. Treatment prior to arrival includes: no previous treatment. Severity of symptoms: in the emergency department the symptoms are unchanged, despite home interventions. Historical: - Allergies: 18:12 Bactrim DS; mouth irritation; ss - PMHx: 18:12 Anxiety; chronic back pain; COPD; Depression; Fibromyalgia; Hypertension; scoliosis; ss - PSHx: 18:12 Appendectomy; ss - Immunization history:: Adult Immunizations up to date. - Social history:: Smoking status: Patient uses tobacco products, smokes one-half pack cigarettes per day. - Ebola Screening: : Patient denies exposure to infectious person Patient denies travel to an Ebola-affected area in the 21 days before illness onset. ROS: 18:18 Eyes: Negative for injury, pain, redness, and discharge. cp 18:18 Constitutional: Negative for body aches, chills, fever, poor PO intake. 18:18 Cardiovascular: Negative for chest pain, palpitations. 18:18 Respiratory: Negative for cough, shortness of breath, wheezing. 18:18 Abdomen/GI: Negative for abdominal pain, nausea, vomiting, and diarrhea. 18:18 Skin: Positive for cellulitis, of the left lower leg and right lower leg, multiple insect bites. 18:18 All other systems are negative. Exam: 18:20 Head/Face: Normocephalic, atraumatic. cp 18:20 Constitutional: The patient appears in no acute distress, alert, awake, non-toxic, well developed, well nourished. 18:20 Eyes: Periorbital structures: appear normal, Conjunctiva: normal, no exudate, no injection, Lids and lashes: appear normal, bilaterally. 18:20 ENT: External ear(s): are unremarkable, Nose: is normal, Mouth: is normal, Posterior pharynx: is normal, airway is patent. 18:20 Chest/axilla: Inspection: normal. 18:20 Cardiovascular: Rate: normal, Rhythm: regular. 18:20 Respiratory: the patient does not display signs of respiratory distress, Respirations: normal, no use of accessory muscles, no splinting, no tachypnea. 18:20 Abdomen/GI: Exam negative for discomfort, distension, guarding, Inspection: abdomen appears normal. 18:20 Skin: cellulitis, that is mild, patchy, on the right lower leg and left lower leg, mild skin ulceration with mild drainage, induration, is not appreciated. Vital Signs: 18:12 BP 149 / 107; Pulse 80; Resp 16; Pulse Ox 98% on R/A; Pain 8/10; ss MDM: 18:14 Patient medically screened. 18:25 Data reviewed: vital signs, nurses notes, and as a result, I will discharge patient. 18:25 Counseling: I had a detailed discussion with the patient and/or guardian regarding: the cp historical points, exam findings, and any diagnostic results supporting the discharge/admit diagnosis, the need for outpatient follow up, a family practitioner, to return to the emergency department if symptoms worsen or persist or if there are any questions or concerns that arise at home. 05/17 18:15 Order name: Wound Culture 05/17 18:16 Order name: Wound Culture EDMS Administered Medications: 18:40 Drug: Clindamycin 300 mg Route: PO; kr2 19:00 Follow up: Response: No adverse reaction kr2 18:41 Not Given (Patient Refused): Ibuprofen 800 mg PO once kr2 Disposition: 05/18 13:38 Co-signature as Attending Physician, Evelio Velázquez MD. Disposition: 05/17/18 18:26 Discharged to Home. Impression: Insect bite (nonvenomous) of lower leg - Bilateral, infected. - Condition is Stable. - Discharge Instructions: Insect Bite, Cellulitis. - Prescriptions for Clindamycin HCl 300 mg Oral Capsule - take 1 capsule by ORAL route every 6 hours for 10 days; 40 capsule. Triamcinolone Acetonide 0.5 % Topical Cream - apply 1 application by TOPICAL route 2 times per day As needed apply to lower legs as directed; 2 tube. - Medication Reconciliation Form, Thank You Letter, Antibiotic Education, Prescription Opioid Use form. - Follow up: Private Physician; When: 48 Hours; Reason: Recheck today's complaints. - Problem is new. - Symptoms have improved. Signatures: Dispatcher [employer] EDMS Chantelle Norman RN RN ss Mick Aguirre PA PA cp Evelio Velázquez MD MD Cassie Desai RN RN kr2 Corrections: (The following items were deleted from the chart) 05/17 19:02 18:26 05/17/2018 18:26 Discharged to Home. Impression: Insect bite (nonvenomous) of kr2 lower leg - Bilateral, infected. Condition is Stable. Forms are Medication Reconciliation Form, Thank You Letter, Antibiotic Education, Prescription Opioid Use. Follow up: Private Physician; When: 48 Hours; Reason: Recheck today's complaints. Problem is new. Symptoms have improved. cp
[2018-05-17] MEDS ORDERED: IBUPROFEN 400 MG TAB ONE (18:40)
[2018-05-17] MEDS ORDERED: CLINDAMYCIN HCL 150 MG CAP ONE (18:40)
[2018-05-17 19:22] VITALS: BP 149/107; O2SAT 98
== END 2018-05-17 19:02 | disposition home or self-care (01) ==
LOC: ER 18:06
DX: L03.116 Cellulitis of left lower limb (principal); L03.115 Cellulitis of right lower limb; Z88.1 Allergy status to other antibiotic agents; I10 Essential (primary) hypertension; F17.210 Nicotine dependence, cigarettes, uncomplicated
CPT/HCPCS: 87070; 87077; 87186; 87205; 99283

== ENCOUNTER 2018-05-17 19:46 | Emergency (ER) | payer OTHER ==
[2018-05-17] MEDS ORDERED: LIDOCAINE 1% MPF 5 ML VIAL ONE (20:22)
[2018-05-17 20:31] LABS: Absolute Lymphocytes (CBC) 2.9 K/uL (0.7-4.9); Absolute Monocytes 0.5 K/uL (0.1-1.3); Absolute Neutrophil 5.6 K/uL (1.8-8.0); Basophils % 1.2 % (0-1.3); Eosinophils % 5.6 % (0-4.4); Hematocrit 35.1 % (39.6-49.0); Lymphocytes % 30.1 % (15.3-44.8); MPV 9.1 fL (7.6-11.3); Monocytes % 4.9 % (3.3-12.3); RBC Red Blood Cell Count 4.04 M/uL (4.33-5.43)
[2018-05-17 20:36] LABS: Bicarbonate 25 mEq/L (21-31); Glucose Level 92 mg/dL (65-120); Potassium 3.3 mEq/L (3.6-5.0); Sodium Level 138 mEq/L (135-145)
[2018-05-17 20:43] LABS: ALT/SGPT 20 IU/L (10-60); AST/SGOT 25 IU/L (10-42); Albumin 3.3 g/dL (3.2-5.5); Alkaline Phosphatase 95 IU/L (42-121); BUN Blood Urea Nitrogen 12 mg/dL (6-20); Bilirubin Direct < 0.1 mg/dL (0-0.2); Bilirubin Total < 0.2 mg/dL (0.3-1.2); Protein, Total 6.9 g/dL (6.0-8.3)
[2018-05-17 21:04] LABS: Alcohol Serum/Plasma 48 mg/dl
[2018-05-17 21:23] LABS: Urine Blood NEGATIVE (NEG); Urine Glucose NEGATIVE (NEG); Urine Protein NEGATIVE (NEG); Urine Specific Gravity 1.005 (1.005-1.030); Urine pH 6.5 (5.0-7.0)
[2018-05-17 21:25] LABS: Barbiturates NEGATIVE (NEGATIVE); Benzodiazepines POSITIVE (NEGATIVE); Cocaine NEGATIVE (NEGATIVE); METHAMPHETAM NEGATIVE (NEGATIVE); Opiates NEGATIVE (NEGATIVE); Phencyclidine NEGATIVE (NEGATIVE); THC Cannibis NEGATIVE (NEGATIVE)
--- NOTE | 2018-05-17 22:24 | EDPHYS ---
Physician Documentation [facility] Name: Jose Foster Age: 63 yrs Sex: Male : 1955 Arrival Date: 05/17/2018 Time: 19:47 Bed 25 Private MD: ED Physician Shravan Shah HPI: 05/17 19:57 This 63 yrs old Male presents to ER via Unassigned with complaints of cp laceration to right wrist. 19:57 The patient or guardian reports a laceration, 4.5 cm(s), simple. The complaints affect cp the right wrist diffusely. Context: patient reports he became upset and using piece of glass he cut wrist. 19:57 Onset: The symptoms/episode began/occurred just prior to arrival. cp Historical: - Allergies: 20:09 Bactrim DS; mouth irritation; mb3 - Home Meds: 20:08 Albuterol Inhl [Active]; Ativan 0.5 mg Oral tab 1 tab 3 times per day [Active]; mb3 carvedilol 6.25 mg Oral tab 1 tab 2 times per day for Hypertension [Active]; Cymbalta Oral [Active]; diclofenac sodium 75 mg Oral TbEC 1 tab 2 times per day [Active]; Flexeril 5 mg Oral tab 1 tab 3 times per day for Fibromyalgia [Active]; gabapentin 300 mg Oral cap 1 cap 3 times per day [Active]; proair HFA [Active]; symbicort [Active]; - PMHx: 20:08 Anxiety; chronic back pain; COPD; Depression; Fibromyalgia; Hypertension; scoliosis; mb3 - Immunization history:: Adult Immunizations up to date, Last tetanus immunization: < 5 years ago. - Social history:: Smoking status: Patient uses tobacco products, denies chronic smoking, but will smoke occasionally, Patient uses alcohol, but reports only rare drinking. - Ebola Screening: : Patient denies travel to an Ebola-affected area in the 21 days before illness onset No symptoms or risks identified at this time. ROS: 20:05 Constitutional: Negative for body aches, chills, fever, poor PO intake. cp 20:05 Eyes: Negative for injury, pain, redness, and discharge. cp 20:05 Cardiovascular: Negative for chest pain, edema, palpitations. 20:05 Respiratory: Negative for cough, shortness of breath, wheezing. 20:05 Skin: Positive for laceration(s), of the volar side right wrist. 20:05 Psych: Positive for depression. 20:05 All other systems are negative. Exam: 20:10 Constitutional: The patient appears in no acute distress, alert, awake, cp non-diaphoretic, non-toxic, well developed, well nourished. 20:10 Head/Face: Normocephalic, atraumatic. cp 20:10 Eyes: Periorbital structures: appear normal, Conjunctiva: normal, no exudate, no injection, Sclera: no appreciated abnormality, Lids and lashes: appear normal, bilaterally. 20:10 ENT: External ear(s): are unremarkable, Ear canal(s): are normal, clear, TM's: bulging, is not appreciated, bilaterally, dullness, bilaterally, erythema, is not appreciated, bilaterally, Nose: is normal, Mouth: is normal, Posterior pharynx: is normal, airway is patent, no erythema, no exudate, Voice: is normal. 20:10 Neck: ROM/movement: is normal, is supple, without pain, no range of motions limitations, no nuchal rigidity. 20:10 Chest/axilla: Inspection: normal, Palpation: is normal, no crepitus, no tenderness. 20:10 Cardiovascular: Rate: normal, Rhythm: regular, Pulses: Pulses are 2+ in right radial artery and left radial artery. Edema: is not appreciated, JVD: is not appreciated. 20:10 Respiratory: the patient does not display signs of respiratory distress, Respirations: normal, no use of accessory muscles, no retractions, no splinting, no tachypnea, labored breathing, is not present, Breath sounds: are clear throughout, no decreased breath sounds, no stridor, no wheezing. 20:10 Abdomen/GI: Inspection: abdomen appears normal, Bowel sounds: active, all quadrants, Palpation: abdomen is soft and non-tender, in all quadrants, rebound tenderness, is not appreciated, voluntary guarding, is not appreciated, involuntary guarding, is not appreciated. 20:10 Musculoskeletal/extremity: Extremities: grossly normal except: noted in the volar surface right wrist: laceration, ROM: intact in all extremities, Sensation intact. 20:10 Neuro: Orientation: to person, place \T\ time. Mentation: lucid, able to follow commands, Cerebellar function: is grossly normal, Motor: moves all fours, strength is normal, Gait: is steady, at a normal pace, without difficulty. 20:10 Psych: Behavior/mood is cooperative, Affect is calm, Oriented to person, place, time, Judgement / Insight is normal. Delusions/hallucinations are not present. Vital Signs: 20:04 BP 160 / 109; Pulse 72; Resp 18; Pulse Ox 100% on R/A; Weight 58.97 kg; Height 5 ft. 6 mb3 in. (167.64 cm); 22:32 BP 132 / 87; Pulse 66; Resp 18; Pulse Ox 96% on R/A; mb3 20:04 Body Mass Index 20.98 (58.97 kg, 167.64 cm) mb3 Laceration: 20:56 Wound Repair of 4.5cm ( 1.8in ) subcutaneous laceration to volar surface of right cp wrist. Linear shaped.. Distal neuro/vascular/tendon intact. Anesthesia: Wound infiltrated with 4 mls of 1% lidocaine. Wound prep: Moderate cleansing by communication technician, Wound irrigation by communication technician. Skin closed with 1 4-0 Prolene using running sutures and sterile technique. Dressed with Bacitracin, Kerlix. Patient tolerated well. MDM: 19:59 Patient medically screened. cp 20:00 Differential diagnosis: drug withdrawal. acute psychotic break, depression, psychosis cp secondary to non-compliance. 20:00 Differential diagnosis: simple laceration, tendon injury, arterial injury. cp 22:21 ED course: VS noted. Patient denies being suicidal or homicidal currently. cp 22:22 Data reviewed: vital signs, nurses notes, lab test result(s), EKG, and as a result, I cp will discharge patient. 22:22 Test interpretation: by ED physician or midlevel provider: ECG. Counseling: I had a cp detailed discussion with the patient and/or guardian regarding: the historical points, exam findings, and any diagnostic results supporting the discharge/admit diagnosis, lab results, to return to the emergency department if symptoms worsen or persist or if there are any questions or concerns that arise at home. Response to treatment: the patient's symptoms have markedly improved after treatment, and as a result, I will discharge patient. 05/17 19:54 Order name: Acetaminophen cp 05/17 19:54 Order name: Basic Metabolic Panel 05/17 19:54 Order name: CBC with Diff 05/17 19:54 Order name: ETOH Level 05/17 19:54 Order name: Hepatic Function 05/17 19:54 Order name: PT-INR 05/17 19:54 Order name: Ptt, Activated cp 05/17 19:54 Order name: Salicylate 05/17 19:54 Order name: Urine Drug Screen 05/17 19:54 Order name: Acetaminophen Level EDKS 05/17 19:54 Order name: Basic Metabolic Panel EDKS 05/17 19:54 Order name: Alcohol Serum/Plasma EDKS 05/17 19:54 Order name: Liver (Hepatic) Function EDKS 05/17 21:20 Order name: Urine Dipstick--Ancillary (enter results) 05/17 19:54 Order name: EKG; Complete Time: 19:54 05/17 19:54 Order name: EKG - Nurse/Tech; Complete Time: 20:25 05/17 19:54 Order name: IV Saline Lock; Complete Time: 20:26 05/17 19:54 Order name: Labs collected and sent; Complete Time: 20:26 05/17 19:54 Order name: Urine Dipstick-Ancillary (obtain specimen); Complete Time: 23:16 05/17 19:54 Order name: Prolene, Sutures 05/17 19:54 Order name: Dressing - Wound 05/17 19:54 Order name: Gloves, Sterile 05/17 19:54 Order name: Setup Suture Tray 05/17 19:54 Order name: Wound Care: please clean and irrigate wound cp Administered Medications: 20:52 Drug: Lidocaine-Epinephrine -1%: (1:100,000) 5 ml Volume: 20 ml; Route: Infiltration; mb3 23:15 Follow up: Response: No adverse reaction mb3 Disposition: 05/18 01:21 Co-signature as Attending Physician, Shravan Shah MD. pkl Disposition: 05/17/18 22:23 Discharged to Home. Impression: Laceration without foreign body of wrist - Right. - Condition is Stable. - Discharge Instructions: Sutured Wound Care. - Medication Reconciliation Form, Thank You Letter, Antibiotic Education, Prescription Opioid Use form. - Follow up: Private Physician; When: 1 - 2 days; Reason: Wound Recheck. - Problem is new. - Symptoms have improved. Signatures: Dispatcher [employer] EDMS Shravan Shah MD MD pkl Page, Corey, PA PA cp Barnett, Mark, RN RN mb3 Corrections: (The following items were deleted from the chart) 05/17 23:21 22:23 05/17/2018 22:23 Discharged to Home. Impression: Laceration without foreign body mb3 of wrist - Right. Condition is Stable. Forms are Medication Reconciliation Form, Thank You Letter, Antibiotic Education, Prescription Opioid Use. Follow up: Private Physician; When: 1 - 2 days; Reason: Wound Recheck. Problem is new. Symptoms have improved. cp 05/18 05:03 05/17 19:57 The patient presents to the emergency department with depression, cp lias
--- NOTE | 2018-05-17 22:24 | ER ---
Nurse's Notes [facility] Name: Jose Foster Age: 63 yrs Sex: Male : 1955 Arrival Date: 05/17/2018 Time: 19:47 Bed 25 Private MD: Diagnosis: Laceration without foreign body of wrist-Right Presentation: 05/17 20:00 Presenting complaint: Patient states: Cut left wrist with glass found after being mb3 discharged from this ER, did state he was trying to commit suicide. Just hopeless and nothing to live for pt stated. Transition of care: patient was not received from another setting of care. Onset of symptoms was May 17, 2018 at 19:45. Risk Assessment: Do you want to hurt yourself or someone else? Patient reports desire/thoughts of hurting themselves or someone else. Provider notified. Initial Sepsis Screen: Does the patient meet any 2 criteria? No. Patient's initial sepsis screen is negative. Does the patient have a suspected source of infection? No. Patient's initial sepsis screen is negative. Care prior to arrival: None. 20:00 Method Of Arrival: Ambulatory mb3 20:00 Acuity: LINO 2 mb3 Triage Assessment: 20:09 General: Appears distressed, unkempt. Pain: Complains of pain in right wrist, right leg mb3 and left leg. EENT: No signs and/or symptoms were reported regarding the EENT system. Neuro: Level of Consciousness is awake, alert, obeys commands, Oriented to person, place, time, situation, Appropriate for age. Cardiovascular: No deficits noted. Reports None Heart tones S1 S2 present Capillary refill < 3 seconds Patient's skin is warm and dry. Respiratory: Airway is patent Respiratory effort is even, unlabored, Respiratory pattern is regular, symmetrical, Breath sounds are clear bilaterally. GI: No deficits noted. No signs and/or symptoms were reported involving the gastrointestinal system. Derm: Reports shallow laceration to right wrist from glass, rash/insect bites all over both lower legs, red and inflamed, with some of them purelent. Musculoskeletal: No deficits noted. No signs and/or symptoms reported regarding the musculoskeletal system. 20:13 General: Behavior is cooperative. mb3 Historical: - Allergies: 20:09 Bactrim DS; mouth irritation; mb3 - Home Meds: 20:08 Albuterol Inhl [Active]; Ativan 0.5 mg Oral tab 1 tab 3 times per day [Active]; mb3 carvedilol 6.25 mg Oral tab 1 tab 2 times per day for Hypertension [Active]; Cymbalta Oral [Active]; diclofenac sodium 75 mg Oral TbEC 1 tab 2 times per day [Active]; Flexeril 5 mg Oral tab 1 tab 3 times per day for Fibromyalgia [Active]; gabapentin 300 mg Oral cap 1 cap 3 times per day [Active]; proair HFA [Active]; symbicort [Active]; - PMHx: 20:08 Anxiety; chronic back pain; COPD; Depression; Fibromyalgia; Hypertension; scoliosis; mb3 - Immunization history:: Adult Immunizations up to date, Last tetanus immunization: < 5 years ago. - Social history:: Smoking status: Patient uses tobacco products, denies chronic smoking, but will smoke occasionally, Patient uses alcohol, but reports only rare drinking. - Ebola Screening: : Patient denies travel to an Ebola-affected area in the 21 days before illness onset No symptoms or risks identified at this time. Screenin:09 Abuse screen: Denies threats or abuse. Nutritional screening: No deficits noted. mb3 Tuberculosis screening: No symptoms or risk factors identified. Fall Risk None identified. Assessment: 20:12 General: see triage assessment. mb3 22:32 Reassessment: Patient appears in no apparent distress at this time. Patient and/or mb3 family updated on plan of care and expected duration. Pain level reassessed. Patient is alert, oriented x 3, equal unlabored respirations, skin warm/dry/pink. Psych: 23:19 Subjective: Patient's mood is irritable. Objective: Patient is cooperative, Speech is mb3 normal, Affect is appropriate. Interventions: Removed personal items and placed in bag. Patient placed in hospital gown. Urine collected and sent for urine drug test. Belonging list filled out. Suicide Risk Assessment: Sad Person Scale: Sex of patient: Male: Score 1 point. Age of patient: Score 0 point if patient falls outside of specified age parameters. Depression: Score 1 point if signs of depression are present. Previous Attempt: Score 1 point if patient has previously attempted suicide. Substance Abuse: Score 1 point if patient abuses alcohol or drugs. Rational Thinking: Score 0 point if patient has rational thinking. Social Support: Score 0 if social support is present/available. Organized Plan: Score 1 point if patient had a plan in place. Relationship: Score 1 point if patient is , , , or for a single male Chronic Sickness: Score 0 point if patient does not have a chronic illness, debilitating, or severe disorder. TOTAL POINTS: If total points are 5-6, proposed clinical action is to strongly consider hospitalization, depending upon confidence in the follow-up arrangement. Implement suicide precautions. Safety Checks: Personal items have been removed. Door is open. No visitors are present at this time. Pt denies substance abuse. Commitment: Patient will be an involuntary commitment. Vital Signs: 20:04 BP 160 / 109; Pulse 72; Resp 18; Pulse Ox 100% on R/A; Weight 58.97 kg; Height 5 ft. 6 mb3 in. (167.64 cm); 22:32 BP 132 / 87; Pulse 66; Resp 18; Pulse Ox 96% on R/A; mb3 20:04 Body Mass Index 20.98 (58.97 kg, 167.64 cm) mb3 ED Course: 19:47 Patient arrived in ED. es 19:51 Mick Aguirre PA is PHCP. cp 19:51 Shravan Shah MD is Attending Physician. cp 19:58 Jonnie Zaman, OTILIA is Primary Nurse. mb3 20:02 Triage completed. mb3 20:08 Inserted saline lock: 20 gauge in left antecubital area, using aseptic technique. Blood mb3 collected. 20:11 called the [facility] office to page out the mental deputy forensic economist to get eb a longterm warrant. Spoke with Sheree she will be calling the [place] police department to come clear the scene she will also page the [facility] forensic economist. 20:13 Arm band placed on left wrist. mb3 20:13 Patient has correct armband on for positive identification. Placed in gown. Bed in low mb3 position. 21:34 [facility] Derek called states he is in [facility] will be here shortly. eb 23:18 No provider procedures requiring assistance completed. IV discontinued, intact, mb3 bleeding controlled, No redness/swelling at site. Pressure dressing applied. Administered Medications: 20:52 Drug: Lidocaine-Epinephrine -1%: (1:100,000) 5 ml Volume: 20 ml; Route: Infiltration; mb3 23:15 Follow up: Response: No adverse reaction mb3 Outcome: 22:23 Discharge ordered by . lisa 23:16 Discharged to home ambulatory. mb3 23:16 Condition: stable 23:16 Discharge instructions given to patient, Instructed on discharge instructions, follow up and referral plans. Demonstrated understanding of instructions, follow-up care. 23:21 Patient left the ED. mb3 Signatures: Emely Lezama Corey, PA PA cp Botello, Elizabeth eb Barnett, Mark, RN RN mb3
[2018-05-17 23:43] VITALS: BP 132/87; O2SAT 96
--- NOTE | 2018-05-18 06:14 | EKG ---
Test Date: 2018-05-17 Test Time: 20:16:59 Urologic Surgeon: MALIKA MEASUREMENT RESULTS: Intervals: Rate: 67 DC: 146 QRSD: 76 QT: 434 QTc: 458 [place]: P: 67 DC: 146 QRS: 65 T: 54 INTERPRETIVE STATEMENTS: Normal sinus rhythm Normal ECG Compared to ECG 07/21/2017 16:04:15 No significant changes Electronically Signed On 05-18-18 06:13:56 CDT by Andres Mancini
== END 2018-05-17 23:21 | disposition home or self-care (01) ==
LOC: ER 19:46
PROC: 0JQG0ZZ Repair Right Lower Arm Subcutaneous Tissue and Fascia, Open Approach (ICD-10-PCS; principal; 2018-05-17)
DX: S61.511A Laceration without foreign body of right wrist, initial encounter (principal); X78.0XXA Intentional self-harm by sharp glass, initial encounter; Y93.89 Activity, other specified; Y92.9 Unspecified place or not applicable; Z72.0 Tobacco use; Z88.1 Allergy status to other antibiotic agents; I10 Essential (primary) hypertension; F32.9 Major depressive disorder, single episode, unspecified; J44.9 Chronic obstructive pulmonary disease, unspecified
CPT/HCPCS: 36415; 80048; 80076; 80307; 80320; 80329; 81003; 85025; 85610; 85730; 93005; 99284